=== PATIENT | female | born 1945 | race Caucasian/White ===

== ENCOUNTER 2017-05-27 20:35 | Emergency (ER) | payer MEDICARE, BC ==
--- NOTE | 2017-05-27 20:46 | EDM.PDOC ---
ED HPI GENERAL MEDICAL PROBLEM - General Chief Complaint: Lower Extremity Injury/Pain Stated Complaint: BY AMBULANCE Time Seen by Provider: 05/27/17 20:41 Source of Information: Reports: Patient, EMS History Limitations: Reports: No Limitations - History of Present Illness INITIAL COMMENTS - FREE TEXT/NARRATIVE: states fell off truck when slipped on ice while trying to get into it. Treatments [employer]: Reports: Splint(s) Left Hip Pain Score (Numeric/FACES): 0 - Related Data Allergies Allergy/AdvReac Type Severity Reaction Status Date / Time Penicillins Allergy Hives Verified 05/27/17 20:45 Home Meds: Home Meds Budesonide [Pulmicort] 1 applic INH BID 05/27/17 [History] Citalopram Hydrobromide [Celexa] 1 tab PO DAILY 05/27/17 [History] Hydrochlorothiazide 1 tab PO DAILY 05/27/17 [History] Losartan [Cozaar] 1 tab PO DAILY 05/27/17 [History] Tiotropium [Spiriva Handihaler] 1 inh INH DAILY 05/27/17 [History] Review of Systems - Review of Systems Review Of Systems: ROS reveals no pertinent complaints other than HPI. ED EXAM, GENERAL - Physical Exam Exam: See Below Exam Limited By: No Limitations General Appearance: Alert, WD/WN, No Apparent Distress, Other (EMS gave fentyl [employer]) Ears: Hearing Grossly Normal Throat/Mouth: Normal Voice, No Airway Compromise Head: Atraumatic Neck: Non-Tender, Full Range of Motion Respiratory/Chest: No Respiratory Distress Cardiovascular: Regular Rate, Rhythm GI/Abdominal: Soft, Non-Tender Extremities: Other (tender @ proximal, NV wnl) Neurological: Alert, Normal Cognition, No Motor/Sensory Deficits Psychiatric: Normal Affect, Normal Mood Skin Exam: Warm, Dry, Normal Color Lymphatic: No Adenopathy Course - Vital Signs Last Recorded V/S: Last Vital Signs Temp 36.1 C 05/27/17 20:45 Pulse 75 05/27/17 20:45 Resp 18 05/27/17 20:45 BP 158/78 H 05/27/17 20:45 Pulse Ox - Orders/Labs/Meds Orders: Active Orders 24 hr Category Date Time Status Pelvis wo Cont [CT] Urgent Exams 05/27/17 20:42 Taken Meds: Medications Discontinued Medications Generic Name Dose Route Start Last Admin Trade Name Freq PRN Reason Stop Dose Admin Hydromorphone HCl 1 mg 05/27/17 21:56 05/27/17 22:01 Dilaudid IVPUSH 05/27/17 21:57 1 mg ONETIME ONE Administration Morphine Sulfate 2 mg 05/27/17 21:06 05/27/17 21:14 Morphine IVPUSH 05/27/17 21:07 2 mg ONETIME ONE Administration - Re-Assessments/Exams Free Text/Narrative Re-Assessment/Exam: 05/27/17 22:30 results discussed with pt 05/27/17 22:[address] Barragan ortho @ Departure - Departure Time of Disposition: 22:45 Disposition: DC/Tfer to Acute Hospital 02 Condition: Good Clinical Impression: Femoral fracture Qualifiers: Encounter type: initial encounter Femur location: shaft Fracture type: closed Fracture morphology: comminuted Fracture alignment: displaced Laterality: left Qualified Code(s): S72.352A - Displaced comminuted fracture of shaft of left femur, initial encounter for closed fracture - Discharge Information Forms: Interfacility Transfer EMTALA - My Orders Last 24 Hours: My Active Orders 05/27/17 20:42 Pelvis wo Cont [CT] Urgent - Assessment/Plan Last 24 Hours: My Active Orders 05/27/17 20:42 Pelvis wo Cont [CT] Urgent
[2017-05-27] MEDS ORDERED: Morphine 2 MG/ML Syringe IVPUSH ONE (21:06)
[2017-05-27] MEDS ORDERED: HYDROmorphone 1 MG/ML Syringe IVPUSH ONE (21:56)
== END 2017-05-27 23:41 ==
LOC: DL.ED 20:35
DX: S72.352A Displaced comminuted fracture of shaft of left femur, initial encounter for closed fracture (principal); Z88.0 Allergy status to penicillin; Z79.899 Other long term (current) drug therapy; W00.0XXA Fall on same level due to ice and snow, initial encounter
CPT/HCPCS: 72192; 96374; 96375; 99284; 99285; J1170; J2270